=== PATIENT | male | born 1995 | race Caucasian/White ===

== ENCOUNTER 2022-01-10 09:13 | Emergency (ER) | payer OTHER, SELFPAY ==
[2022-01-10 09:29] VITALS: BP 144/72; PULSE 94; RESP 16; TEMP 36.9; O2SAT 97; BMI 27.3
--- NOTE | 2022-01-10 09:29 | ED_ITS ---
HPI - Back Pain/Injury General Chief Complaint: Back Pain/Injury Stated Complaint: Threw out back, Pain lower back Time Seen by Provider: 01/10/22 09:17 History of Present Illness HPI Narrative: This young man comes to the ER today with acute back pain. He has no past medical history of any consequence other than a self limited back injury some years ago. He says that he was doing heavy lifting last night at the gym and knew that he lifted improperly and felt a sudden pain in his back. He was able to discontinue his workout and had home. He did reasonably well last night and during the night but this morning after taking a shower the pain escalated to the point where he was no longer able to ambulate or dress himself without assistance. He comes into the ER leaning on a wheelchair but is able to ambulate without assistance. He specifically denies incontinence of urine or stool. He says that he has some pain radiating down his right leg. No fever or illness otherwise. Related Data Previous Rx's Medication Instructions Recorded cyclobenzaprine 10 mg tablet 10 mg PO TID PRN muscle spasm #14 01/10/22 tabs Review of Systems Review of Systems Narrative: Complete review of systems is negative other than as noted above. Exam Narrative Exam Narrative: GENERAL: Alert, cooperative and in no distress. HEAD: Atraumatic. Normocephalic. EYES: Sclera are clear without icterus. Extraocular movements are full. ENT: No rhinorrhea. NECK: Supple. Full range of motion. CARDIOVASCULAR: Normal rate and rhythm without murmur gallop or rub. RESPIRATORY: Clear to auscultation. Breath sounds equal bilaterally. No wheezes, rales, or rhonchi. GASTROINTESTINAL: Abdomen soft, non-tender, nondistended. EXTREMITIES: No edema, full range of motion. No obvious trauma. BACK: Normal inspection, no CVA tenderness. He identifies the pain in the L4-5 S1 region but there is no tenderness to palpate in this location. NEURO: Nonfocal examination, normal speech, gait is limited by pain. He needs to lean on a wheelchair to walk. He has normal dorsiflexion and plantar flexion strength at the ankles. Modified straight leg testing is positive on the left but he can fully extend his leg. On the right he has marked lower lumbar pain with minimal extension of the right lower extremity in the seated position. SKIN: No rash or erythema of visible areas PSYCH: Normally oriented. Normal range of affect. Appropriate behavior Initial Vital Signs Initial Vital Signs: Vital Signs Temperature 98.4 F 01/10/22 09:29 Pulse Rate 94 H 01/10/22 09:29 Respiratory Rate 16 01/10/22 09:29 Blood Pressure 144/72 H 01/10/22 09:29 Pulse Oximetry 97 01/10/22 09:29 Oxygen Delivery Method 01/10/22 09:29 Course Course Course Narrative: Current time 10:54 a.m.. Patient is feeling quite a bit better and would like to go home. I do not suspect immediately dangerous cause for his symptoms I think outpatient follow- up is appropriate with oral medications. See discharge instructions. Orders Ordered: Discontinued Medications Acetaminophen (Acetaminophen 325 Mg Tablet) 975 mg PO NOW ONE Stop: 01/10/22 09:30 Last Admin: 01/10/22 09:58 Dose: 975 mg Documented By: CTS Hydromorphone HCl (Hydromorphone 1 Mg Inj) 2 mg IM NOW ONE Stop: 01/10/22 09:30 Last Admin: 01/10/22 09:58 Dose: 2 mg Documented By: CTS Vital Signs Vital signs: Vital Signs - 8 hr 01/10/22 09:29 Temperature 98.4 F Pulse Rate 94 H Respiratory Rate 16 Blood Pressure 144/72 H Pulse Oximetry 97 Oxygen Delivery Method Room Air Discharge Plan Departure Clinical Impression: Strain of lumbar region, Sciatica Instructions: DI for Back Pain With Sciatica Activity Restrictions/Additional Instructions: No immediately dangerous cause for her back pain is suspected at this time. I recommend gentle return to activity. No lifting or weightlifting for number of days until things are dramatically improved. Follow up in the ER right away with urinary or fecal incontinence or lower extremity weakness. For now I recommend Tylenol 1000 mg and ibuprofen 600 mg every 6 hours. You can use the m uscle relaxer as needed in addition to this. Follow-up with your [place] provider next week for further recommendations. Prescriptions: New cyclobenzaprine 10 mg tablet 10 mg PO TID PRN (Reason: muscle spasm) Qty: 14 0RF
[2022-01-10] MEDS: ACETAMINOPHEN 325 MG TABLET 975 MG PO (09:58)
[2022-01-10] MEDS: HYDROMORPHONE 1 MG INJ 2 MG IM (09:58)
[2022-01-10 11:08] VITALS: BP 123/58; PULSE 65; RESP 19; O2SAT 99
== END 2022-01-10 11:11 | disposition home or self-care (01) ==
PROVIDERS: Emergency Provider Family Medicine Addiction Medicine
DX: S39.012A Strain of muscle, fascia and tendon of lower back, initial encounter (principal); M54.30 Sciatica, unspecified side; X50.0XXA Overexertion from strenuous movement or load, initial encounter
CPT/HCPCS: 96372; 99283; J1170